=== PATIENT | male | born 1980 | race Caucasian/White ===

== ENCOUNTER 2024-04-28 21:18 | Inpatient (IN) ==
--- NOTE | 2024-04-28 21:51 | Emergency Department Note ---
History of Present Illness General Chief complaint: Respiratory Problems Stated complaint: SHORTNESS OF BREATH, R RIB PAIN Time Seen by Provider: 04/28/24 21:33 History of Present Illness Maximum Pain Intensity: 10 This 44-year-old male who travels a lot for work he quit smoking 3 weeks ago presents ER complaining of sudden onset of shortness of breath. Patient also noticed his right leg was painful and swollen today. No personal History of DVT or PE. Patient denies fever, chills, cough, congestion, trauma to the area. there is a distant history of clotting disorder in his family. Home Medications Medication Instructions Recorded Confirmed Type atenolol 100 mg-chlorthalidone 25 1 tab PO DAILY 04/28/24 04/28/24 History mg tablet ibuprofen 800 mg tablet 800 mg PO Q8H PRN Pain 04/28/24 04/28/24 History Allergies Allergy/AdvReac Type Severity Reaction Status Date / Time No Known Allergies Allergy Unverified 04/28/24 23:58 Past Med/Surg History Problem List (Updated 04/28/24 @ 22:53 by Summer Jarrell PA-C) Hypokalemia (Acute) Pulmonary embolism (Acute) Social History Smoking Status: Former smoker Tobacco Type: Cigarettes Second Hand Exposure: No; Do You Dip or Chew Tobacco: No; Tobacco Cessation Education Requested by Patient: No Hx Alcohol Use: No Hx Substance Use: No Preferred Language: Arabic Communication Ability: Effective Gold Marker Required: No Beliefs That Will Affect Care: None Current Living Situation: Spouse Current Living Situation Comment: lives at home with Other Information That Helps Us Care for You: No Feels Safe at Home: Yes Safety Concerns: Feels Safe At This Time Assistive Devices: None Review of Systems A total of 10 systems reviewed and were otherwise negative Physical Exam Vital Signs Vital Signs - 24 hr 04/28/24 21:25 04/28/24 21:25 04/28/24 21:28 Temperature 37.5 C Temperature Source Oral Pulse Rate 109 H 104 H Respiratory Rate 22 Respiratory Effort / Characteristics Short of Breath SOB on Exertion Respiratory Depth Shallow Respiratory Pattern Rapid/Shallow Blood Pressure 137/92 Blood Pressure Mean 107 Pulse Oximetry 94 Oxygen Delivery Method Nasal Cannula Oxygen Flow Rate 2 Sepsis Recent Fever Within 48 Hours No Sepsis New/Unexplained Change in Mental Status No Sepsis Action Taken by Nursing Physician Notified 04/28/24 21:51 Temperature Temperature Source Pulse Rate Respiratory Rate Respiratory Effort / Characteristics Respiratory Depth Respiratory Pattern Blood Pressure Blood Pressure Mean Pulse Oximetry 95 Oxygen Delivery Method Nasal Cannula Oxygen Flow Rate 2 Sepsis Recent Fever Within 48 Hours Sepsis New/Unexplained Change in Mental Status Sepsis Action Taken by Nursing VITALS: Vitals are noted on the nurse's note and reviewed by myself. Vital signs hypoxic on room air and improved with nasal cannula GENERAL: White male acutely appearing short of breath on oxygen not normally, in no acute distress, nondiaphoretic, well-developed well-nourished. SKIN: Capillary reflex less than 2 seconds. HEENT: Normocephalic. PERRLA. EOMI. Nares patent. Mucous membranes moist. Neck is supple without nuchal rigidity. HEART: Regular rate and rhythm LUNGS: Diminished breath sounds in the right base, clear to auscultation bilaterally without wheezes, rales or rhonchi. No retractions or accessory muscle use. ABDOMEN: Positive bowel sounds x 4. Normal tympanic percussion. Soft, nontender, without masses or organomegaly. Bay sign negative. No guarding or rebound tenderness. no CVA tenderness MUSCULOSKELETAL: No gross musculoskeletal defects. Right calf swollen and tender to palpation. Left calf normal. NEURO: Patient was alert and oriented to person place and time. No focal neurological deficits. Course Administered Medications Albuterol (Albut/Ipratrop 3mg/0.5mg Neb 3 Ml Vial) 3 ml INH QIDR [facility] Stop: 05/29/24 14:59 Last Admin: 04/29/24 19:31 Dose: 3 ml Documented By: Admin: 04/29/24 15:49 Dose: 3 ml Documented By: SHANELL Doxycycline Hyclate (Doxycycline Hyclate 100 Mg Cap) 100 mg PO BID [facility] Stop: 05/06/24 20:59 Last Admin: 04/29/24 20:44 Dose: 100 mg Documented By: SUNITHA Guaifenesin (Guaifenesin 600 Mg Tabcr) 600 mg PO BID [facility] Stop: 05/04/24 09:01 Last Admin: 04/29/24 20:43 Dose: 600 mg Documented By: SUNITHA Heparin Sodium/Dextrose (Heparin Sodium/Dextrose) 25,000 units in 500 mls @ 35 mls/hr IV .[id number] [facility]; Protocol Stop: 05/28/24 23:14 Last Admin: 04/29/24 15:36 Dose: 1,750 units/hr, 35 mls/hr Documented By: GENET Co-signed By: SUSANNE Titration: 04/29/24 15:34 Dose: Infused Documented By: GENET Co-signed By: SUSANNE Admin: 04/28/24 23:51 Dose: 1,750 units/hr, 35 mls/hr Documented By: MILENA Co-signed By: PASTOR Lactated Ringer's (Lr) 1,000 mls @ 160 mls/hr IV .Q6H15M [facility] Stop: 04/30/24 03:38 Last Admin: 04/29/24 23:48 Dose: 160 mls/hr Documented By: Infusion: 04/29/24 23:26 Dose: Infused Documented By: Admin: 04/29/24 17:11 Dose: 160 mls/hr Documented By: GENET Methylprednisolone 40 mg/ (Syringe) 0.64 mls @ 1.5 mls/min IV Q6H [facility] Stop: 05/29/24 18:59 Last Admin: 04/29/24 20:44 Dose: 1.5 mls/min Documented By: SUNITHA Ondansetron HCl (Ondansetron Inj 2 Mg/Ml 2 Ml Vial) 4 mg IV Q6H PRN PRN Reason: Nausea Stop: 05/29/24 15:08 Last Admin: 04/29/24 21:49 Dose: 4 mg Documented By: SUNITHA Discontinued Medications Albuterol (Albut/Ipratrop 3mg/0.5mg Neb 3 Ml Vial) Confirm Administered Dose 3 ml .ROUTE .STK-MED ONE Stop: 04/29/24 06:06 Last Admin: 04/29/24 15:35 Dose: Not Given Documented By: GENET Heparin Sodium (Porcine) (Heparin Sod (Porcine) 1000 Unit/Ml) 8,000 units IV NOW ONE Stop: 04/28/24 23:46 Last Admin: 04/28/24 23:51 Dose: 8,000 units Documented By: MILENA Co-signed By: PASTOR Heparin Sodium/Dextrose (Heparin Iv Adult Wt-Based Standard W/ Initial Bolus Protocol) 1 each IV NOW STA; Protocol Stop: 04/28/24 22:50 Last Admin: 04/28/24 23:58 Dose: 1 each Documented By: MILENA Hydromorphone HCl (Hydromorphone Inj 0.5 Mg/0.5 Ml Syr) Confirm Administered Dose 0.5 mg .ROUTE .STK-MED ONE Stop: 04/29/24 01:59 Last Admin: 04/29/24 15:34 Dose: Not Given Documented By: GENET Hydromorphone HCl (Hydromorphone Inj 0.5 Mg/0.5 Ml Syr) Confirm Administered Dose 0.5 mg .ROUTE .STK-MED ONE Stop: 04/29/24 02:24 Last Admin: 04/29/24 15:35 Dose: Not Given Documented By: GENET Hydromorphone HCl (Hydromorphone Inj 0.5 Mg/0.5 Ml Syr) Confirm Administered Dose 0.5 mg .ROUTE .STK-MED ONE Stop: 04/29/24 05:45 Last Admin: 04/29/24 15:35 Dose: Not Given Documented By: GENET Sodium Chloride (Nss) 1,000 mls @ 999 mls/hr IV .Q1H1M ONE Stop: 04/28/24 23:36 Last Infusion: 04/29/24 16:48 Dose: Infused Documented By: Admin: 04/28/24 22:42 Dose: 999 mls/hr Documented By: KATHERINE Magnesium Sulfate/Dextrose (Magnesium Sulfate / D5w) 1 gm in 100 mls @ 50 mls/hr IV Q2H [facility] Stop: 04/29/24 19:08 Last Admin: 04/29/24 15:39 Dose: Not Given Documented By: Admin: 04/29/24 15:34 Dose: Not Given Documented By: GENET Ioversol (Optiray 320 125ml) 116 ml IV ONCE ONE Stop: 04/28/24 22:04 Last Admin: 04/28/24 22:05 Dose: 116 ml Documented By: AUDRA Morphine Sulfate (Morphine Sulfate 4 Mg/Ml 1 Ml Carp\Vial) 4 mg IV NOW STA Stop: 04/28/24 23:15 Last Admin: 04/28/24 23:24 Dose: 4 mg Documented By: MILENA Ondansetron HCl (Ondansetron Inj 2 Mg/Ml 2 Ml Vial) 4 mg IV NOW STA Stop: 04/28/24 23:15 Last Admin: 04/28/24 23:24 Dose: 4 mg Documented By: MILENA Potassium Chloride (Potassium Chloride Crtab 20 Meq Tabcr) 40 meq PO NOW STA Stop: 04/28/24 22:43 Last Admin: 04/28/24 23:22 Dose: 40 meq Documented By: MILENA Critical Care Time Critical Care Time: Yes Total Critical Care Time: 35 I have personally spent 35 minutes of critical care time in the direct management of this patient. This includes bedside care, interpretation of diagnostic studies, and testing, discussion with consultants, patient, and family members, and other required patient management activities. This 35 minutes is in excess of all separately billable procedures. Medical Decision Making Medical Records Attestation: I reviewed the patient's medical records. Home Medications Current Medication List: was personally reviewed by me Laboratory Data Attestation: I reviewed the patient's lab results. 04/29/24 06:21 04/29/24 06:21 Lab Results 04/28/24 04/28/24 Range/Units 21:27 21:49 WBC 14.88 H (4.8-10.8) K/ul RBC 5.35 (4.70-6.10) M/uL Hgb 14.9 (14.0-18.0) g/dl POC Hgb 15.6 (14.0-18.0) g/dl Hct 43.6 (42.0-52.0) % POC Hct 46 (42-52) % MCV 81.5 (80.0-100.0) fL MCH 27.9 (25.0-34.0) pg MCHC 34.2 (32.0-36.0) g/dL RDW Std Deviation 39.5 (36.4-46.3) fL RDW Coeff of Lance 13.6 (11.5-14.5) % Plt Count 224 (130-400) K/uL MPV 10.6 (9.4-12.4) fL Immature Gran % (Auto) 0.6 % Neut % (Auto) 77.7 % Lymph % (Auto) 12.6 % [place] % (Auto) 7.1 % Eos % (Auto) 1.5 % Baso % (Auto) 0.5 % Neut # (Auto) 11.56 H (1.40-6.50) K/uL Lymph # (Auto) 1.88 (1.20-3.40) K/uL [place] # (Auto) 1.05 H (0.11-0.59) K/uL Eos # (Auto) 0.23 (0.00-0.50) K/uL Baso # (Auto) 0.07 (0.00-0.20) K/uL Immature Gran # (Auto) 0.09 (0.01-0.20) K/uL PT 11.7 (9.0-12.0) Seconds INR 1.1 (0.9-1.1) APTT 36 H (21-31) Seconds PTT Ratio 1.3 POC Sodium 139 (135-144) mmol/L Sodium 136 (136-145) mmol/L POC Potassium 3.1 L (3.3-5.0) mmol/L Potassium 3.1 L (3.5-5.1) mmol/L POC Chloride 99 L (101-112) mmol/L Chloride 100 (98-107) mmol/L Carbon Dioxide 26 (21-32) mmol/L POC Total CO2 23 L (24-31) mmol/L Anion Gap 10 (3-11) POC Anion Gap 22.0 (16-25) mmol/L POC BUN 23 H (7-18) mg/dl BUN 22 (6-23) mg/dl Creatinine 1.03 (0.6-1.4) mg/dl POC Creatinine 1.1 (0.6-1.3) mg/dl Est Cr Clr Drug Dosing 125.7 ml/min Est GFR ( Amer) 101.2 ml/min Est GFR (Non-Af Amer) 87.3 ml/min BUN/Creatinine Ratio 21.4 H (10-20) Glucose 186 H (70-99(Fasting)) mg/dl POC Glucose (other) 187 H (70-99) mg/dl Calcium 8.9 (8.6-10.3) mg/dl POC Ioniz Calcium Navi 1.08 L (1.12-1.32) mmol/l Magnesium 1.8 (1.7-2.4) mg/dl Total Bilirubin 1.2 H (0.2-1.0) mg/dl AST 19 (13-39) U/L ALT 22 (7-52) U/L Alkaline Phosphatase 70 (34-104) U/L Troponin I High Sens 7.1 (0-20) pg/ml Total Protein 8.1 (6.0-8.3) gm/dl Albumin 4.5 (3.4-5.0) gm/dl Globulin 3.6 (2.5-4.0) gm/dl Albumin/Globulin Ratio 1.3 (0.9-2) Lipase 207 H (11-82) U/L Imaging Data Attestation: I personally reviewed and interpreted this imaging study as follows: Radiologist's Impression: Chest CTA 04/28/24 21:39 Exam(s): CTA CHEST IV Amt: 116 ml optiray 320 EXAM: CT Angiography Chest With Intravenous Contrast CLINICAL HISTORY: Chest Pain, eval for PE. TECHNIQUE: Axial computed tomographic angiography images of the chest with intravenous contrast. CTDI is 28.14 mGy and DLP is 761.63 mGy-cm. Automated exposure control was utilized for the study. A dose lowering technique was utilized adhering to the principles of ALARA. MIP reconstructed images were created and reviewed. COMPARISON: No relevant prior studies available. FINDINGS: Limitations: There is extensive respiratory artifact which degrades image quality throughout the lungs. Pulmonary arteries: Evaluation of pulmonary artery tree is limited by respiratory artifact and heterogeneous enhancement. However, there is a partial vertical linear filling defect noted in the proximal subsegmental branches serving the left lower lobe. Additional subsegmental defect noted involving the posterior aspect of the segmental and subsegmental branches serving the proximal right upper lobe. Also, there is also a subtle linear partial filling defect involving the subsegmental branches serving the right lower lobe (series 4; image 85). Evaluation for additional potential distal subsegmental filling defects is limited by nondiagnostic quality of the majority of the distal subsegmental pulmonary artery branches. Aorta: No acute findings. No thoracic aortic aneurysm. Lungs: Evaluation of the lungs is somewhat limited. There is diminished expiratory lung volumes with curvilinear changes at the lung bases. No obvious focal airspace consolidation. Pleural space: Unremarkable. No significant effusion. No pneumothorax. Heart: The cardiac chambers are within normal limits. No definite CT evidence for right heart strain. No pericardial effusion. Bones/joints: No acute fracture. No dislocation. Soft tissues: Unremarkable. Lymph nodes: Unremarkable. No enlarged lymph nodes. IMPRESSION: 1. Evaluation of pulmonary artery tree is limited by respiratory artifact and heterogeneous enhancement. However, there are partial, predominantly linear filling defects involving the proximal segmental and subsegmental branches serving the bilateral lower lobes and proximal right upper lobe, consistent with bilateral pulmonary emboli. The linear changes are not definitive for an acute process. This appearance may also be seen with chronic incomplete recanalization or subacute changes. Evaluation for additional potential distal subsegmental filling defects is limited by nondiagnostic quality of the majority of the distal subsegmental pulmonary artery branches. No CT evidence for right heart strain. 2. Evaluation of the lungs is somewhat limited. There is diminished expiratory lung volumes with curvilinear changes at the lung bases. No obvious focal airspace consolidation. No pleural effusion or pneumothorax. Electronically signed by: Andrew Prado MD 04/28/24 22:45 PM [facility] Narrative Prior records/ancillary studies reviewed. Triage Nursing notes reviewed. Additional history obtained from the nursing. The patient's history was concerning for respiratory difficulties. Differential diagnosis: Etiologies such as infections, reactive airway disease, pneumonia, pneumothorax, COPD, CHF, cardiac ischemia, pulmonary embolism, musculoskeletal, gastrointestinal, as well as others were entertained. Physical examination: As above. ER treatment provided: An order was placed for continuous cardiac monitoring. The monitor shows a rate of 60-1 20 with a sinus rhythm per my interpretation. Limited bedside ultrasound shows active lung sliding in all 4 [place]ley per my independent interpretation Patient was emergently sent down for CTA for rule out PE Heparin with bolus was ordered hypercoagulable workup was ordered On reassessment the patient felt better. Diagnostic interpretation by me: The electrocardiogram was ordered for SOB. ECG: Normal sinus, poor baseline, no ST depression in the inferior leads, rate of 106. Impression sinus tachycardia ST depression that is minimal in inferior leads independently interpreted by myself The labs Independently Interpreted by myself revealed stable H&H. Negative troponin. Low potassium Imaging studies: Chest x-ray with no acute consolidation, pneumothorax or free air per my independent interpretation. CTA as above HEART SCORE: Hx: high/mod/low suspicion: 0 ECG: ST depression/nonspecific changes/normal: 1 Age: Greater than 65/45-64/less than 45: 1 Risk factors: (Hypertension, hyperlipidemia, diabetes, coronary disease, tobacco use, cocaine use): 1 Troponin: Greater than 2 times normal limits/1-2 times normal limits/normal: 0 Total: 3 PESI Score Age: 44 Male gender: 9 History of cancer: 0 Heart failure: 0 Chronic lung disease: 0 Pulse >110/min: 20 Systolic blood pressure <100 mmH Respiratory rate >30/min: 0 Temperature <36 Celcius: 0 Altered mental status: 0 Arterial oxygen saturation <90 percent: 20 Total: 95 Class I Low risk <66 Class II 66 to 85 Class III High risk 86 to 105 Class IV 106 to 125 Class V >125 Consultation: A consultation was placed with the hospitalist. The case was discussed and diagnostics were reviewed. The patient was evaluated in the ER for further treatment. This appears to be consistent with bilateral PEs. Hypercoagulable workup was ordered. Dopplers were ordered. Patient was started on heparin with bolus. Patient is agreeable treatment plan of admission. Patient was admitted to the medical service. By the evaluation outlined above emergent etiologies such as CHF, cardiac ischemia, reactive airway disease, pneumonia, pneumothorax, musculoskeletal, serious bacterial infections, as well as others were deemed relatively unlikely. The pt informed about the findings as listed above. All questions were answered and pleased with the treatment. condition. The chart was completed utilizing [employer] Speech voice recognition software. Grammatical errors, random word insertions, pronoun errors, and incomplete sentences are an occassional consequence of this system due to software limitations, ambient noise, and hardware issues. Any formal questions or concerns about the content, text, or information contained within the body of this dictation should be directly addressed to the physician producer assistant for clarification. Impression & Plan Pulmonary embolism, Hypokalemia Discharge Plan Visit Data Chief Complaint: Respiratory Problems Stated Complaint: SHORTNESS OF BREATH, R RIB PAIN ED Provider: Kayleigh Stanton ED Midlevel Provider: Summer Jarrell Discharge Problem: Pulmonary embolism, Hypokalemia Patient Disposition: Admitted As Inpatient Condition: Good Discharge Instructions Interventions: ED Discharge Assessment Last Done: 04/29/24 01:09 Discharge Problem: Pulmonary embolism Qualifiers: Pulmonary embolism type: multiple subsegmental (without acute cor pulmonale) Q ualified Code(s): I26.94 - Multiple subsegmental pulmonary emboli without acute cor pulmonale
[2024-04-28 22:02] LABS: iSTAT Creatinine 1.1 mg/dl (0.6-1.3); iSTAT Hemoglobin 15.6 g/dl (14.0-18.0); iSTAT Ionized Calcium 1.08 mmol/l (1.12-1.32); iSTAT Potassium 3.1 mmol/L (3.3-5.0)
[2024-04-28] MEDS: OPTIRAY 320 125ml IV ONE (22:05)
[2024-04-28 22:19] LABS: Basophils # (auto) 0.07 K/uL (0.00-0.20); Basophils % (auto) 0.5 %; Eosinophils # (auto) 0.23 K/uL (0.00-0.50); Eosinophils % (auto) 1.5 %; Hematocrit (blood only) 43.6 % (42.0-52.0); Hemoglobin 14.9 g/dl (14.0-18.0); Immature Granulocytes # (auto) 0.09 K/uL (0.01-0.20); Immature Granulocytes % (auto) 0.6 %; Lymphocytes # (auto) 1.88 K/uL (1.20-3.40); Lymphocytes % (auto) 12.6 %; Mean Corpuscular Hemoglobin 27.9 pg (25.0-34.0); Mean Corpuscular Hgb Conc 34.2 g/dL (32.0-36.0); Mean Corpuscular Volume 81.5 fL (80.0-100.0); Mean Platelet Volume 10.6 fL (9.4-12.4); Monocytes # (auto) 1.05 K/uL (0.11-0.59); Monocytes % (auto) 7.1 %; Neutrophils # (auto) 11.56 K/uL (1.40-6.50); Neutrophils % (auto) 77.7 %; Platelet Count 224 K/uL (130-400); RDW Coefficient of Variation 13.6 % (11.5-14.5); RDW Standard Deviation 39.5 fL (36.4-46.3); Red Blood Count 5.35 M/uL (4.70-6.10); White Blood Count 14.88 K/ul (4.8-10.8)
[2024-04-28 22:39] LABS: Albumin Globulin Ratio 1.3 (0.9-2); Albumin Level 4.5 gm/dl (3.4-5.0); BUN Creatinine Ratio 21.4 (10-20); Bilirubin,Total 1.2 mg/dl (0.2-1.0); Calcium 8.9 mg/dl (8.6-10.3); Creatinine Clr Calc Pharmacy 125.7 ml/min; Est GFR (African American) 101.2 ml/min; Est GFR (Non-African American) 87.3 ml/min; Globulin 3.6 gm/dl (2.5-4.0); Potassium 3.1 mmol/L (3.5-5.1); Total Protein 8.1 gm/dl (6.0-8.3)
[2024-04-28] MEDS: SODIUM CHLORIDE 0.9% 1,000 ML IV ONE (22:42)
[2024-04-28 22:45] LABS: Troponin I High Sensitivity 7.1 pg/ml (0-20)
--- NOTE | 2024-04-28 22:45 | CT Scan Report ---
Exam(s): CTA CHEST IV Amt: 116 ml optiray 320 EXAM: CT Angiography Chest With Intravenous Contrast CLINICAL HISTORY: Chest Pain, eval for PE. TECHNIQUE: Axial computed tomographic angiography images of the chest with intravenous contrast. CTDI is 28.14 mGy and DLP is 761.63 mGy-cm. Automated exposure control was utilized for the study. A dose lowering technique was utilized adhering to the principles of ALARA. MIP reconstructed images were created and reviewed. COMPARISON: No relevant prior studies available. FINDINGS: Limitations: There is extensive respiratory artifact which degrades image quality throughout the lungs. Pulmonary arteries: Evaluation of pulmonary artery tree is limited by respiratory artifact and heterogeneous enhancement. However, there is a partial vertical linear filling defect noted in the proximal subsegmental branches serving the left lower lobe. Additional subsegmental defect noted involving the posterior aspect of the segmental and subsegmental branches serving the proximal right upper lobe. Also, there is also a subtle linear partial filling defect involving the subsegmental branches serving the right lower lobe (series 4; image 85). Evaluation for additional potential distal subsegmental filling defects is limited by nondiagnostic quality of the majority of the distal subsegmental pulmonary artery branches. Aorta: No acute findings. No thoracic aortic aneurysm. Lungs: Evaluation of the lungs is somewhat limited. There is diminished expiratory lung volumes with curvilinear changes at the lung bases. No obvious focal airspace consolidation. Pleural space: Unremarkable. No significant effusion. No pneumothorax. Heart: The cardiac chambers are within normal limits. No definite CT evidence for right heart strain. No pericardial effusion. Bones/joints: No acute fracture. No dislocation. Soft tissues: Unremarkable. Lymph nodes: Unremarkable. No enlarged lymph nodes. IMPRESSION: 1. Evaluation of pulmonary artery tree is limited by respiratory artifact and heterogeneous enhancement. However, there are partial, predominantly linear filling defects involving the proximal segmental and subsegmental branches serving the bilateral lower lobes and proximal right upper lobe, consistent with bilateral pulmonary emboli. The linear changes are not definitive for an acute process. This appearance may also be seen with chronic incomplete recanalization or subacute changes. Evaluation for additional potential distal subsegmental filling defects is limited by nondiagnostic quality of the majority of the distal subsegmental pulmonary artery branches. No CT evidence for right heart strain. 2. Evaluation of the lungs is somewhat limited. There is diminished expiratory lung volumes with curvilinear changes at the lung bases. No obvious focal airspace consolidation. No pleural effusion or pneumothorax. Electronically signed by: Andrew Prado MD 04/28/24 22:45 PM
[2024-04-28 22:55] LABS: Magnesium 1.8 mg/dl (1.7-2.4)
[2024-04-28 23:01] LABS: INR 1.1 (0.9-1.1); Partial Thromboplastin Ratio 1.3; Partial Thromboplastin Time 36 Seconds (21-31); Prothrombin Time 11.7 Seconds (9.0-12.0)
--- NOTE | 2024-04-28 23:01 | History & Physical Report ---
Date of Service April 28, 2024 Assessment & Plan (1) Pulmonary embolism: (2) Hypokalemia: Plan Brando is a 44 M w/o significant PMH who presented to the ED for acute onset dyspnea. Bilateral Pulmonary Emboli - Acute onset of dyspnea @ 5 PM, preceded by 2 days of RLE edema/pain - Hemodynamically stable, afebrile, on 2L NC - Leukocytosis w/ left shift on presentation, no acute sign of infection - EKG w/ sinus tachycardia - Coagulation labs/panel drawn pre-anticoagulation - Heparin gtt w/ bolus ongoing - LE Duplex ordered - Echocardiogram ordered - Pain Management: Tylenol PRN, Morphine 2 mg IV Q3 PRN 1-5, Morphine 4 mg IV Q3 PRN 6-10 Hypokalemia - Repletion Code: Full Diet: Regular IVF: mIVF Dispo: Med/tele History of Present Illness Chief Complaint: Dyspnea Primary Care Provider: JOVON Salas Brando is a 44 M w/o significant PMH who presented to the ED for acute onset dyspnea. 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 get to his job here in [place] - He notes that last night he had twisted and felt a large pop in his mid-back, and has been experiencing a growing amount of discomfort there since - Patient has no history of VTE, no known family history of VTE or clotting disorders (states he doesn't know his family history well) - Patient does have hx of HTN but doesnt recall what his medicine is, believes it has HCTZ in it - Patient endorses ongoing back pain but denies chest pain, headaches, lightheadedness, or abdominal pain - He endorses mild nausea Allergies Allergy/AdvReac Type Severity Reaction Status Date / Time No Known Allergies Allergy Unverified 04/28/24 23:58 Home Medications Medication Instructions Recorded Confirmed Type atenolol 100 mg-chlorthalidone 25 1 tab PO DAILY 04/28/24 04/28/24 History mg tablet ibuprofen 800 mg tablet 800 mg PO Q8H PRN Pain 04/28/24 04/28/24 History Past Med/Surg History Problem List (Updated 04/30/24 @ 14:37 by Kerry Lei MD) Acute hypoxic respiratory failure Hypokalemia (Acute) Pulmonary embolism (Acute) Social History Smoking Status: Former smoker Tobacco Type: Cigarettes Second Hand Exposure: No; Do You Dip or Chew Tobacco: No; Tobacco Cessation Education Requested by Patient: No Hx Alcohol Use: No Hx Substance Use: No Preferred Language: Korean Communication Ability: Effective Professor Of Psychiatry Required: No Beliefs That Will Affect Care: None Current Living Situation: Spouse Current Living Situation Comment: lives at home with Other Information That Helps Us Care for You: No Feels Safe at Home: Yes Safety Concerns: Feels Safe At This Time Assistive Devices: None Physical Exam Physical Exam: Gen: Acutely uncomfortable, dyspnic, speaking in short sentences HEENT: Supple, no LAD, no thyromegaly, no JVD Resp:Labored, no wheezing/rhonchi/rales, CTAB CV:Tachycardic, regular, normal S1/S2, no M/R/G Abd: Soft, non-distended, no TTP, normoactive bowels, no masses Extr: 2+ dp bilaterally, 3+ nonpitting RLE edema w/o calf TTP, no LLE edema. Skin: No rashes lesions or erythema Results & Data Results & Data Vital Signs (Past 12 Hours) Vital Signs Temp Pulse Resp BP Pulse Ox O2 Del Method O2 Flow Rate 04/28/24 21:51 95 Nasal Cannula 2 04/28/24 21:28 104 H 04/28/24 21:25 37.5 C 109 H 22 137/92 94 Nasal Cannula 2 Supervising Physician Co-Signing Physician Notes Attending addendum: I have physically seen this patient, have supervised the medical residents activities, and agree with the H&P unless as otherwise noted. Assessment and Plan: Bilateral pulmonary emboli- CT angiography notes proximal segmental and subsegmental PEs in bilateral lower lobes, and proximal right upper lobe. EKG with sinus tachycardia Hypercoagulable workup ordered Continue heparin drip with bolus begun in the ED The patient will be admitted to telemetry for serial cardiac enzymes, serial EKG's, cardiac rhythm monitoring and a 2-D echocardiogram with Dopplers. Lower extremity Dopplers ordered and pending Acetaminophen 650 mg by mouth every 6 hours as needed for mild pain or fever Morphine sulfate 2 mg IV every 3 hours as needed for moderate pain Morphine sulfate 4 mg IV every 3 hours as needed for severe pain Hypokalemia- Potassium 3.1 on admission Magnesium level ordered and pending Replete orally and IV, recheck laboratories in a.m. Hypertension- Continue atenolol Hold chlorthalidone due to likely cause of low potassium Resident Activity Tracking Resident Involvement: Resident Care Provided Care Provided: Adult Hospital Medicine (1) Pulmonary embolism Pulmonary embolism type: multiple subsegmental (without acute cor pulmonale) Qualified Code(s): I26.94 - Multiple subsegmental pulmonary emboli without acute cor pulmonale
[2024-04-28] MEDS ORDERED: HEPARIN SOD (PORCINE) 1000 UNIT/ML IV ONE (23:05)
[2024-04-28] MEDS: POTASSIUM CHLORIDE CRTAB 20 MEQ TABCR PO STA (23:22)
[2024-04-28] MEDS: MoRPHine SULFATE 4 MG/ML 1 ML CARP\\VIAL IV STA (23:24)
[2024-04-28] MEDS: ONDANSETRON INJ 2 MG/ML 2 ML VIAL IV STA (23:24)
[2024-04-28] MEDS: HEPARIN SODIUM/DEXTROSE 25,000 UNITS/500 ML BAG IV SCH (23:51)
[2024-04-28] MEDS: HEPARIN SOD (PORCINE) 1000 UNIT/ML IV ONE (23:51)
[2024-04-28] MEDS: Heparin IV Adult Wt-Based Standard w/ INITIAL Bolus Protocol IV STA (23:58)
--- NOTE | 2024-04-29 12:02 | Ultrasound Report ---
US venous doppler Brando Willett CLINICAL HISTORY: PEs TECHNIQUE: Bilateral lower extremity real-time compression venous ultrasound with Color Doppler imagi ng. Utilizing real-time ultrasonic imaging multiple real time high-resolution ultrasonic images with compression and noncompression maneuvers of the deep venous system in addition to color doppler imagi ng were performed from the common femoral vein through the proximal calf veins. COMPARISON: None available at the time of this dictation. FINDINGS/IMPRESSION: The venous thrombus is seen extending from the common femoral vein to the posterior tibial and perone al veins. No left lower extremity DVT is seen. No superficial venous thrombosis is identified. ACT 112: Negative or not required by law. Electronically signed by: Andry Hurst M.D. 04/29/2024 10:50 AM
--- NOTE | 2024-04-29 12:02 | XRay Report ---
XR chest 1V portable CLINICAL HISTORY: Chest pain, nonspecific COMPARISON STUDY: No previous studies for comparison. FINDINGS: There are low lung volumes. Bibasilar densities favor atelectasis. There is no consolidatio n to suggest pneumonia. Cardiac size is at upper limits of normal. There is no evidence for pulmonary edema. IMPRESSION: No acute cardiopulmonary findings. ACT 112: Negative or not required by law. Electronically signed by: Reji Kothari M.D. 04/29/2024 9:42 AM
[2024-04-29] MEDS ORDERED: MoRPHine SULFATE 4 MG/ML 1 ML CARP\\VIAL IV PRN (15:09)
[2024-04-29] MEDS ORDERED: MoRPHine SULFATE 2 MG/ML CARP IV PRN (15:09)
[2024-04-29] MEDS: HYDROmorphone INJ 0.5 MG/0.5 ML SYR ONE ×3 (15:34→15:35)
[2024-04-29] MEDS: MAGNESIUM SULFATE / D5W 1 GM/100 ML BAG IV SCH (15:34)
[2024-04-29] MEDS: ALBUT/IPRATROP 3MG/0.5MG NEB 3 ML VIAL ONE (15:35)
[2024-04-29] MEDS: ALBUT/IPRATROP 3MG/0.5MG NEB 3 ML VIAL INH SCH (15:49)
--- NOTE | 2024-04-29 16:09 | Electrocardiogram Report ---
Test Reason : Blood Pressure : / mmHG Vent. Rate : 106 BPM Atrial Rate : 106 BPM P-R Int : 150 ms QRS Dur : 098 ms QT Int : 348 ms P-R-T Axes : 026 069 023 degrees QTc Int : 462 ms Sinus tachycardia Otherwise normal ECG No previous ECGs available Confirmed by Sundeep Weeks ([id number]) on 04/29/2024 4:09:19 PM Referred By: REFERRED SELF Confirmed By:Sundeep Weeks
[2024-04-29] MEDS: LACTATED RINGER'S 1,000 ML IV SCH (17:11)
[2024-04-29 17:17] LABS: ANTI-Xa, UFH(UnfractionatedHep 0.44 IU/ml (0.3-0.7)
[2024-04-29 17:57] LABS: Hematocrit (blood only) 41.7 % (42.0-52.0); Hemoglobin 14.2 g/dl (14.0-18.0); Mean Corpuscular Hemoglobin 28.2 pg (25.0-34.0); Mean Corpuscular Hgb Conc 34.1 g/dL (32.0-36.0); Mean Corpuscular Volume 82.9 fL (80.0-100.0); Mean Platelet Volume 10.5 fL (9.4-12.4); Platelet Count 207 K/uL (130-400); RDW Coefficient of Variation 13.8 % (11.5-14.5); RDW Standard Deviation 41.1 fL (36.4-46.3); Red Blood Count 5.03 M/uL (4.70-6.10); White Blood Count 17.68 K/ul (4.8-10.8)
[2024-04-29 19:11] LABS: Albumin Globulin Ratio 1.2 (0.9-2); Albumin Level 4.2 gm/dl (3.4-5.0); BUN Creatinine Ratio 24.1 (10-20); Bilirubin,Total 1.3 mg/dl (0.2-1.0); Calcium 8.3 mg/dl (8.6-10.3); Est GFR (African American) 123.2 ml/min; Est GFR (Non-African American) 106.3 ml/min; Globulin 3.6 gm/dl (2.5-4.0); Magnesium 1.8 mg/dl (1.7-2.4); Potassium 3.4 mmol/L (3.5-5.1); Total Protein 7.8 gm/dl (6.0-8.3)
[2024-04-29] MEDS: guaiFENesin 600 MG TABCR PO SCH (20:43)
[2024-04-29] MEDS: methylPREDNISolone 40 MG in SYRINGE 0 ML IV SCH (20:44)
[2024-04-29] MEDS: DOXYCYCLINE HYCLATE 100 MG CAP PO SCH (20:44)
[2024-04-29] MEDS: ONDANSETRON INJ 2 MG/ML 2 ML VIAL IV PRN (21:49)
[2024-04-30 01:33] LABS: HCO3 VBG 30 mmol/L; Oxygen Saturation VBG 83.6 %; PCO2 VBG 44 mmHg (38-50); PO2 VBG 49 mmHg; pH VBG 7.44 (7.36-7.41)
[2024-04-30] MEDS: FUROSEMIDE 40 MG/4 ML VIAL IV ONE (01:58)
[2024-04-30 02:03] LABS: ANTI-Xa, UFH(UnfractionatedHep 0.29 IU/ml (0.3-0.7)
[2024-04-30 07:35] LABS: Hematocrit (blood only) 39.8 % (42.0-52.0); Hemoglobin 13.8 g/dl (14.0-18.0); Mean Corpuscular Hgb Conc 34.7 g/dL (32.0-36.0); Mean Corpuscular Volume 80.9 fL (80.0-100.0); Mean Platelet Volume 10.2 fL (9.4-12.4); Platelet Count 230 K/uL (130-400); RDW Coefficient of Variation 13.1 % (11.5-14.5); RDW Standard Deviation 38.2 fL (36.4-46.3); Red Blood Count 4.92 M/uL (4.70-6.10); White Blood Count 20.47 K/ul (4.8-10.8)
[2024-04-30 07:47] LABS: BUN Creatinine Ratio 24.6 (10-20); Calcium 8.7 mg/dl (8.6-10.3); Creatinine Clr Calc Pharmacy 187.7 ml/min; Est GFR (African American) 132.9 ml/min; Est GFR (Non-African American) 114.7 ml/min; Magnesium 1.9 mg/dl (1.7-2.4); Potassium 3.3 mmol/L (3.5-5.1)
[2024-04-30 08:41] LABS: ANTI-Xa, UFH(UnfractionatedHep 0.37 IU/ml (0.3-0.7)
--- NOTE | 2024-04-30 09:03 | XRay Report ---
XR chest 1V portable CLINICAL HISTORY: worsening oxygen requirement TECHNIQUE: Single frontal radiograph of the chest was obtained. Comparison: Comparison is made to chest radiograph 04/28/2024 FINDINGS: No lines and tubes are seen. Cardiomegaly is noted. Lungs are underinflated with faint bibasilar airs pace opacities.. No evidence of pleural effusion or pneumothorax. IMPRESSION: Underinflated lungs with likely atelectasis in the bilateral lower lungs. ACT 112: Negative or not required by law. Electronically signed by: Andry Hurst M.D. 04/30/2024 9:02 AM
[2024-04-30] MEDS: POTASSIUM CHLORIDE CRTAB 20 MEQ TABCR PO STA (09:44)
[2024-04-30] MEDS: methylPREDNISolone 40 MG in SYRINGE 0 ML IV SCH (12:42)
--- NOTE | 2024-04-30 14:33 | Hospitalist Progress Note ---
Date of Service April 30, 2024 Assessment & Plan (1) Acute hypoxic respiratory failure: Plan Acute hypoxic respiratory failure Acute b/l PE Continue heparin gtt - change to [facility] outpatient hematology follow up AE COPD Improving - taper steroids Continue bronchodilators Smoking cessation Hypertension Continue home regimen, continue OOB as tolerated DVT Px Dispo - Wean O2 as tolerated, discharge when O2 requirement is below 6LPM Admission and Anticipated Discharge Date Admission Date: April 28, 2024 Subjective Reports much improvement of shortness of breath and chest pain but on high flow oxygen Physical Exam Physical Exam: Resting comfortably, non toxic Lungs much improved air entry compared to yesterday Heart RRR PA Soft, NT, ND, BS+ MSK No joint swelling or effsuion AAO#3, No focal deficits Skin no rash Results & Data Results & Data Vital Signs (Past 12 Hours) Vital Signs Temp Pulse Resp BP Pulse Ox O2 Del Method O2 Flow Rate 04/30/24 14:23 76 18 91 High Flow Nasal Cannula 04/30/24 10:47 36.9 C 93 H 26 H 133/69 89 L High Flow Nasal Cannula 04/30/24 10:36 High Flow Nasal Cannula 30 04/30/24 10:05 84 22 93 High Flow Nasal Cannula 30 04/30/24 08:01 36.6 C 85 25 H 147/83 H 88 L High Flow Nasal Cannula 04/30/24 07:31 78 18 90 High Flow Nasal Cannula 04/30/24 03:02 36.9 C 84 18 145/85 H 95 CPAP FiO2 04/30/24 14:23 100 04/30/24 10:47 04/30/24 10:36 100 04/30/24 10:05 100 04/30/24 08:01 04/30/24 07:31 100 Reviewed 04/30/24 03:02 Reviewed PG Care Time/CCT Total # of Minutes Spent Total Time Spent with Patient: Total time spent is greater than 50% in coordination of care (as documented) at patient's floor/unit and/or counseling patient: Coding Level of Care Code 19226 SUB INP/OBS CARE 2/35MIN Diagnoses Acute hypoxic respiratory failure J96.01
--- NOTE | 2024-04-30 16:52 | XCELERA ---
[id number]
[2024-04-30] MEDS: APIXABAN 5 MG TABLET PO SCH (18:31)
--- NOTE | 2024-04-30 19:22 | Billing Data ---
Date of Service April 30, 2024 Coding Level of Care Code 96669 INT INP/OBS CARE
[2024-05-01 05:58] LABS: Hematocrit (blood only) 37.7 % (42.0-52.0); Mean Corpuscular Hemoglobin 28.2 pg (25.0-34.0); Mean Corpuscular Hgb Conc 34.5 g/dL (32.0-36.0); Mean Corpuscular Volume 81.8 fL (80.0-100.0); Mean Platelet Volume 10.2 fL (9.4-12.4); Platelet Count 245 K/uL (130-400); RDW Coefficient of Variation 13.1 % (11.5-14.5); RDW Standard Deviation 38.7 fL (36.4-46.3); Red Blood Count 4.61 M/uL (4.70-6.10); White Blood Count 23.78 K/ul (4.8-10.8)
[2024-05-01 06:18] LABS: BUN Creatinine Ratio 31.4 (10-20); Calcium 8.8 mg/dl (8.6-10.3); Est GFR (African American) 132.1 ml/min; Magnesium 2.1 mg/dl (1.7-2.4); Potassium 3.7 mmol/L (3.5-5.1)
--- NOTE | 2024-05-01 08:37 | XRay Report ---
XR chest 1V portable HISTORY: dyspnea COMPARISON: Chest 04/30/2024. FINDINGS: No pneumothorax. No pleural effusions. There is mild elevation of the right hemidiaphragm a nd low lung volumes. This is similar to the prior study. The cardiac silhouette remains mildly enlarg ed. Bibasilar linear densities persist. No acute fractures. There is mild central pulmonary vascular congestion without overt edema. IMPRESSION: No significant change in the low lung volumes and bibasilar linear densities. This favors subsegmenta l atelectasis. ACT 112: Negative or not required by law. Electronically signed by: Alfonso Ring M.D. 05/01/2024 8:35 AM
--- NOTE | 2024-05-01 10:38 | Hospitalist Progress Note ---
Date of Service April 30, 2024 Assessment & Plan (1) Acute hypoxic respiratory failure: Plan Acute hypoxic respiratory failure Requiring high flow at 33LPM Pulmonary consult Acute b/l PE - changed heparin gtt to [facility] Outpatient hematology follow up Bronchospasm / smoker - ? COPD Exacerbation Much improved with steroids - change IV solumedrol for PO prednisone 5 day course Continue duonebs, complete course of Doxycycline smoking cessation House diet OOB as tolerated DVT Px - on heparin gtt Full code Dispo - discharge when O2 requirement is below 6LPM Admission and Anticipated Discharge Date Admission Date: April 28, 2024 Subjective no chest pain or shortness of breath, looks and feels good but still high supplemental O2 requirement at 33LPM, no cough, fever or chills Physical Exam Physical Exam: Resting comfortably, non toxic Lungs - clear to auscultation bilaterally Heart - RRR PA Soft, NT, ND, BS+, No palpable masses Skin no rash MSK - No joint swelling or effusion AAO##, Non focal Pleasant and cooperative Vitals reviewed Results & Data Results & Data Vital Signs (Past 12 Hours) Vital Signs Temp Pulse Resp BP Pulse Ox O2 Del Method O2 Flow Rate 05/01/24 08:00 36.8 C 78 20 119/71 96 Free Flow/Blow-by 33 05/01/24 07:23 66 20 98 High Flow Nasal Cannula 25 05/01/24 03:44 73 18 90 High Flow Nasal Cannula 25 05/01/24 03:23 36.8 C 68 18 125/68 91 Free Flow/Blow-by 33 04/30/24 22:58 80 18 91 High Flow Nasal Cannula 25 04/30/24 22:39 37.0 C 72 18 112/60 94 High Flow Nasal Cannula 25 FiO2 05/01/24 08:00 05/01/24 07:23 100 05/01/24 03:44 100 05/01/24 03:23 04/30/24 22:58 100 04/30/24 22:39 PG Care Time/CCT Total # of Minutes Spent Total Time Spent with Patient: Total time spent is greater than 50% in coordination of care (as documented) at patient's floor/unit and/or counseling patient: Coding Level of Care Code 22561 SUB INP/OBS CARE 2/35MIN Diagnoses Acute hypoxic respiratory failure J96.01
--- NOTE | 2024-05-01 10:44 | Hospitalist Progress Note ---
Date of Service April 30, 2024 Assessment & Plan (1) Acute hypoxic respiratory failure: Plan Acute hypoxic respiratory failure Acute b/l PE - change heparin gtt to [facility] Outpatient hematology follow up Bronchospasm / smoker - ? COPD Exacerbation Much improved with steroids - taper solumedrol Continue duonebs, complete course of Doxycycline smoking cessation outpatient pulm follow up House diet OOB as tolerated DVT Px - on heparin gtt Full code Dispo - discharge when O2 requirement is below 6LPM Admission and Anticipated Discharge Date Admission Date: April 28, 2024 Subjective Reports improvement of chest pain and shortness of breath but overnight O2 requirement increased to 30Lhigh flow Physical Exam Physical Exam: Resting comfortably, non toxic Lungs - much improved air entry bilateralyl Heart - RRR PA Soft, NT, ND, BS+, No palpable masses Skin no rash MSK - No joint swelling or effusion AAO##, Non focal Pleasant and cooperative Vitals reviewed Results & Data Results & Data Vital Signs (Past 12 Hours) Vital Signs Temp Pulse Resp BP Pulse Ox O2 Del Method O2 Flow Rate 05/01/24 08:00 36.8 C 78 20 119/71 96 Free Flow/Blow-by 33 05/01/24 07:23 66 20 98 High Flow Nasal Cannula 25 05/01/24 03:44 73 18 90 High Flow Nasal Cannula 25 05/01/24 03:23 36.8 C 68 18 125/68 91 Free Flow/Blow-by 33 04/30/24 22:58 80 18 91 High Flow Nasal Cannula 25 FiO2 05/01/24 08:00 05/01/24 07:23 100 05/01/24 03:44 100 05/01/24 03:23 04/30/24 22:58 100 Diagnostic Findings ECHO 2D with no RV strain PG Care Time/CCT Total # of Minutes Spent Total Time Spent with Patient: Total time spent is greater than 50% in coordination of care (as documented) at patient's floor/unit and/or counseling patient: Coding Level of Care Code 41990 SUB INP/OBS CARE 2/35MIN Diagnoses Acute hypoxic respiratory failure J96.01
--- NOTE | 2024-05-01 11:15 | Pulmonary Consultation ---
Date of Consultation May 01, 2024 Assessment & Plan (1) Acute hypoxic respiratory failure: (2) Pulmonary embolism: Pulmonary embolism type: multiple subsegmental (without acute cor pulmonale) Qualified Code(s): I26.94 - Multiple subsegmental pulmonary emboli without acute cor pulmonale (3) Acute DVT (deep venous thrombosis): (4) Morbid obesity: Plan CTA chest 04/28/2024 personally reviewed: Motion degraded study Mild elevation of right hemidiaphragm Minimal dependent atelectasis bilateral lower lobes Pulmonary emboli appreciated in the segmental as well as subsegmental right and left pulmonary arteries No significant mediastinal lymphadenopathy 2D echo 04/30/2024: EF 60-65%, RV not well-visualized but grossly normal in size and function --Acute hypoxic respiratory failure Likely secondary to bilateral pulmonary emboli VQ mismatch from dependent atelectasis bilateral lower lobes secondary to morbid obesity also playing a part Doppler right lower extremity positive for DVT Incentive spirometry -- Pulmonary emboli with acute DVT right lower extremity Diagnosed 04/28/2024 Patient did have travel history of 6 hours with 1 stop. No personal or family history of coagulation disorders. I would recommend lifelong anticoagulation for the patient Would recommend 3 months of full dose anticoagulation followed by half dose anticoagulation as patient's BMI puts him at risk for clots again in future -- Probable MELI Would recommend outpatient polysomnography. CPAP nightly in the hospital Plan: Chest x-ray from today shows poor inspiratory effort with elevated right hemidiaphragm. I would recommend lifelong anticoagulation for the patient Would recommend 3 months of full dose anticoagulation followed by half dose anticoagulation as patient's BMI puts him at risk for clots again in future Aggressive incentive spirometry Keep O2 saturation>90% Please note the above document was generated using voice recognition software. It may contain grammatical, syntax or spelling errors.Any formal questions or concerns about the content, text or information contained within the body of this dictation should be directly addressed to the provider for clarification. History of Present Illness Attending Physician: Kerry Lei MD History of Present Illness 43-year-old male present to the hospital with complaints of shortness of breath Past medical history: Hypertension Pulmonary consulted for hypoxia Patient's was in the room at the time of examination He was saturating 92-93% on 13 L nasal cannula. Respiratory was in the mid to high teens. Denied any chest pain today. He stated that he is feeling better compared to yesterday when it comes to his breathing. He usually stays 6 hours from [place]. He drives 6 hours on a regular basis with 1 stop in the middle. No known history of clotting disorders personally or in the family. No fever or chills, no trauma to the leg No headache or blurry vision Social history:> [id number] smoking history, currently smoking a pack a day. Worked as a gas welder, wore mask all the time Allergies Allergy/AdvReac Type Severity Reaction Status Date / Time No Known Allergies Allergy Unverified 04/28/24 23:58 Home Medications Medication Instructions Recorded Confirmed Type atenolol 100 mg-chlorthalidone 25 1 tab PO DAILY 04/28/24 04/28/24 History mg tablet ibuprofen 800 mg tablet 800 mg PO Q8H PRN Pain 04/28/24 04/28/24 History Patient History Social History Smoking Status: Former smoker Tobacco Type: Cigarettes Second Hand Exposure: No; Do You Dip or Chew Tobacco: No; Tobacco Cessation Education Requested by Patient: No Hx Alcohol Use: No Hx Substance Use: No Preferred Language: Japanese Communication Ability: Effective Software Consultant Required: No Beliefs That Will Affect Care: None Current Living Situation: Spouse Current Living Situation Comment: lives at home with Other Information That Helps Us Care for You: No Feels Safe at Home: Yes Safety Concerns: Feels Safe At This Time Assistive Devices: None Review of Systems 2 Review of Systems: All systems reviewed & are unremarkable except as noted in HPI & below Physical Exam 2 Physical Exam: Constitutional: No acute distress HEENT: EOMI, PERRLA Respiratory system: Decreased air entry bowel 20, no wheeze, no rhonchi, positive crackles bilateral lower lobes CVS: S1-S2 positive, no murmurs or gallops, distant heart sounds Abdomen: Soft, nontender, nondistended, positive bowel sounds x4, obese Extremities: +2 pulses bilaterally radialis/ dorsalis pedis, no cyanosis, +2 pitting edema right lower extremity, +1 pitting edema left lower extremity Neuro: Awake alert oriented x3 Psych: Normal mood and affect G/U:, No [place] Skin: no rashes, warm and dry Lymphatic: no cervical or axillary lymphadenopathy Results & Data Results & Data Vital Signs (Past 12 Hours) Vital Signs Temp Pulse Resp BP Pulse Ox O2 Del Method O2 Flow Rate 05/01/24 10:48 74 18 92 Nasal Cannula 12 05/01/24 08:00 36.8 C 78 20 119/71 96 Free Flow/Blow-by 33 05/01/24 07:23 66 20 98 High Flow Nasal Cannula 25 05/01/24 03:44 73 18 90 High Flow Nasal Cannula 25 05/01/24 03:23 36.8 C 68 18 125/68 91 Free Flow/Blow-by 33 FiO2 05/01/24 10:48 05/01/24 08:00 05/01/24 07:23 100 05/01/24 03:44 100 05/01/24 03:23 Laboratory Results 05/01/24 05:38 05/01/24 05:38 PG Care Time/CCT Total # of Minutes Spent Total Time Spent with Patient: Total time spent is greater than 50% in coordination of care (as documented) at patient's floor/unit and/or counseling patient: Coding Level of Care Code 55920 INT INP/OBS CARE 3/75MIN Diagnoses Acute hypoxic respiratory failure J96.01 Pulmonary embolism I26.94 Pulmonary embolism type: multiple subsegmental (without acute cor pulmonale) Acute DVT (deep venous thrombosis) I82.409 Morbid obesity E66.01
--- NOTE | 2024-05-02 07:11 | Pulmonology Progress Note ---
Date of Service May 02, 2024 Assessment & Plan (1) Acute hypoxic respiratory failure: (2) Pulmonary embolism: Pulmonary embolism type: multiple subsegmental (without acute cor pulmonale) Qualified Code(s): I26.94 - Multiple subsegmental pulmonary emboli without acute cor pulmonale (3) Acute DVT (deep venous thrombosis): (4) Morbid obesity: Plan CTA chest 04/28/2024 personally reviewed: Motion degraded study Mild elevation of right hemidiaphragm Minimal dependent atelectasis bilateral lower lobes Pulmonary emboli appreciated in the segmental as well as subsegmental right and left pulmonary arteries No significant mediastinal lymphadenopathy 2D echo 04/30/2024: EF 60-65%, RV not well-visualized but grossly normal in size and function --Acute hypoxic respiratory failure Likely secondary to bilateral pulmonary emboli VQ mismatch from dependent atelectasis bilateral lower lobes secondary to morbid obesity also playing a part Doppler right lower extremity positive for DVT Incentive spirometry -- Pulmonary emboli with acute DVT right lower extremity Diagnosed 04/28/2024 Patient did have travel history of 6 hours with 1 stop. No personal or family history of coagulation disorders. I would recommend lifelong anticoagulation for the patient Would recommend 3 months of full dose anticoagulation followed by half dose anticoagulation as patient's BMI puts him at risk for clots again in future -- Probable MELI Would recommend outpatient polysomnography. CPAP nightly in the hospital Plan: I would recommend lifelong anticoagulation for the patient Would recommend 3 months of full dose anticoagulation followed by half dose anticoagulation as patient's BMI puts him at risk for clots again in future Also recommend outpatient polysomnography Aggressive incentive spirometry Keep O2 saturation>90% Case was discussed with RN at bedside Please note the above document was generated using voice recognition software. It may contain grammatical, syntax or spelling errors.Any formal questions or concerns about the content, text or information contained within the body of this dictation should be directly addressed to the provider for clarification. Admission and Anticipated Discharge Date Admission Date: April 28, 2024 Subjective Patient seen and examined at bedside. No acute distress, no adverse events overnight Denies any chest pain Was standing in the room at the time of examination, saturating 94% on 8 L nasal cannula I was able to go down to 6 L and he was still maintaining saturation around 90- 91% Has been using incentive spirometry. Fair appetite, no hemoptysis He did try CPAP at night and was able to tolerate only for an hour or so. He is willing to try it again. He is complaining of nasal congestion, will give him some nasal spray Review of Systems 2 Review of Systems: All systems reviewed & are unremarkable except as noted in Subjective Physical Exam 2 Physical Exam: Constitutional: No acute distress HEENT: EOMI, PERRLA Respiratory system: Decreased air entry bilaterally, no wheeze, no rhonchi, positive crackles bilateral lower lobes CVS: S1-S2 positive, no murmurs or gallops, distant heart sounds Abdomen: Soft, nontender, nondistended, positive bowel sounds x4, obese Extremities: +2 pulses bilaterally radialis/ dorsalis pedis, no cyanosis, +2 pitting edema right lower extremity, +1 pitting edema left lower extremity Neuro: Awake alert oriented x3 Psych: Normal mood and affect G/U:, No [place] Skin: no rashes, warm and dry Lymphatic: no cervical or axillary lymphadenopathy Results & Data Results & Data Vital Signs (Past 12 Hours) Vital Signs Temp Pulse Pulse Resp BP BP Pulse Ox 05/02/24 03:16 36.5 C 66 16 92/55 L 92 05/02/24 00:25 70 24 93 05/01/24 23:27 36.7 C 66 18 147/74 H 95 05/01/24 21:52 80 05/01/24 19:53 36.7 C 80 18 147/72 H 94 05/01/24 19:45 05/01/24 19:31 82 18 93 O2 Del Method O2 Flow Rate 05/02/24 03:16 High Flow Nasal Cannula 9.0 05/02/24 00:25 8 05/01/24 23:27 Nasal Cannula 9 05/01/24 21:52 05/01/24 19:53 High Flow Nasal Cannula 9.0 05/01/24 19:45 Nasal Cannula 9 05/01/24 19:31 Nasal Cannula 9 Laboratory Results 05/02/24 06:32 05/02/24 06:32 PG Care Time/CCT Total # of Minutes Spent Total Time Spent with Patient: Total time spent is greater than 50% in coordination of care (as documented) at patient's floor/unit and/or counseling patient: Coding Level of Care Code 48468 SUB INP/OBS CARE 2/35MIN Diagnoses Acute hypoxic respiratory failure J96.01 Pulmonary embolism I26.94 Pulmonary embolism type: multiple subsegmental (without acute cor pulmonale) Acute DVT (deep venous thrombosis) I82.409 Morbid obesity E66.01
[2024-05-02 07:39] LABS: Hematocrit (blood only) 39.6 % (42.0-52.0); Hemoglobin 13.1 g/dl (14.0-18.0); Mean Corpuscular Hemoglobin 27.8 pg (25.0-34.0); Mean Corpuscular Hgb Conc 33.1 g/dL (32.0-36.0); Mean Corpuscular Volume 83.9 fL (80.0-100.0); Platelet Count 237 K/uL (130-400); RDW Coefficient of Variation 13.4 % (11.5-14.5); RDW Standard Deviation 41.2 fL (36.4-46.3); Red Blood Count 4.72 M/uL (4.70-6.10)
[2024-05-02 07:44] LABS: BUN Creatinine Ratio 32.4 (10-20); Creatinine Clr Calc Pharmacy 181.5 ml/min; Est GFR (African American) 131.3 ml/min; Est GFR (Non-African American) 113.3 ml/min; Potassium 3.4 mmol/L (3.5-5.1)
[2024-05-02] MEDS: ACETAMINOPHEN 500 MG TAB PO PRN (07:53)
[2024-05-02] MEDS: predniSONE 20 MG TAB PO SCH (07:53)
[2024-05-02] MEDS: CHLORTHALIDONE 25 MG TAB PO SCH (10:44)
[2024-05-02] MEDS: ATENOLOL 50 MG TABLET PO SCH (10:44)
[2024-05-02] MEDS: FLUTICASONE PROPIONATE NA SPR 16 GM BTL SCH (12:45)
--- NOTE | 2024-05-02 13:47 | Hospitalist Progress Note ---
Date of Service May 02, 2024 Assessment & Plan (1) Acute hypoxic respiratory failure: Plan Acute hypoxic respiratory failure Hypoxia improving currently on 8LPM saturating 94% - wean as tolerated Pulmonary consult Acute b/l PE - changed heparin gtt to [facility] Outpatient hematology follow up Bronchospasm / smoker - ? COPD Exacerbation Much improved with steroids - complete PO prednisone 5 day course Continue duonebs, complete course of Doxycycline smoking cessation House diet OOB as tolerated DVT Px - on heparin gtt Full code Dispo - discharge when O2 requirement is below 6LPM Admission and Anticipated Discharge Date Admission Date: April 28, 2024 Subjective restting comfortably, no chest pain or SOB, on 8L O2 Physical Exam Physical Exam: Resting comfortably, non toxic Lungs - clear to auscultation bilaterally Heart - RRR PA Soft, NT, ND, BS+, No palpable masses Skin no rash MSK - No joint swelling or effusion AAO##, Non focal Pleasant and cooperative Vitals reviewed Results & Data Results & Data Vital Signs (Past 12 Hours) Vital Signs Temp Pulse Resp BP BP Pulse Ox O2 Del Method 05/02/24 12:02 36.6 C 75 17 128/82 95 Nasal Cannula 05/02/24 10:40 74 18 92 Nasal Cannula 05/02/24 09:14 Nasal Cannula 05/02/24 07:54 36.5 C 84 20 160/79 H 92 Nasal Cannula 05/02/24 07:25 68 18 94 Nasal Cannula 05/02/24 03:16 36.5 C 66 16 92/55 L 92 High Flow Nasal Cannula O2 Flow Rate 05/02/24 12:02 6 05/02/24 10:40 8 05/02/24 09:14 8 05/02/24 07:54 8 05/02/24 07:25 8 05/02/24 03:16 9.0 PG Care Time/CCT Total # of Minutes Spent Total Time Spent with Patient: Total time spent is greater than 50% in coordination of care (as documented) at patient's floor/unit and/or counseling patient: Coding Level of Care Code 75595 SUB INP/OBS CARE 2/35MIN Diagnoses Acute hypoxic respiratory failure J96.01
--- NOTE | 2024-05-02 16:10 | Hospitalist Progress Note ---
Date of Service May 02, 2024 Assessment & Plan (1) Acute hypoxic respiratory failure: Plan Acute hypoxic respiratory failure Hypoxia improving currently on 8LPM saturating 94% - wean as tolerated Pulmonary consult Acute b/l PE secondary to RLE DVT - changed heparin gtt to [facility] Outpatient hematology follow up Bronchospasm / smoker - ? COPD Exacerbation Much improved with steroids - complete PO prednisone 5 day course Continue duonebs, complete course of Doxycycline smoking cessation House diet OOB as tolerated DVT Px - on heparin gtt Full code Dispo - discharge when O2 requirement is below 6LPM Admission and Anticipated Discharge Date Admission Date: April 28, 2024 Subjective restting comfortably, no chest pain or SOB, on 8L O2 Physical Exam Physical Exam: Resting comfortably, non toxic Lungs - clear to auscultation bilaterally Heart - RRR PA Soft, NT, ND, BS+, No palpable masses Skin no rash MSK - No joint swelling or effusion AAO##, Non focal Pleasant and cooperative Vitals reviewed Results & Data Results & Data Vital Signs (Past 12 Hours) Vital Signs Temp Pulse Resp BP BP Pulse Ox O2 Del Method 05/02/24 15:38 70 18 93 Nasal Cannula 05/02/24 14:35 36.9 C 68 17 121/74 94 Nasal Cannula 05/02/24 12:02 36.6 C 75 17 128/82 95 Nasal Cannula 05/02/24 10:40 74 18 92 Nasal Cannula 05/02/24 09:14 Nasal Cannula 05/02/24 07:54 36.5 C 84 20 160/79 H 92 Nasal Cannula 05/02/24 07:25 68 18 94 Nasal Cannula O2 Flow Rate 05/02/24 15:38 6 05/02/24 14:35 6 05/02/24 12:02 6 05/02/24 10:40 8 05/02/24 09:14 8 05/02/24 07:54 8 05/02/24 07:25 8 PG Care Time/CCT Total # of Minutes Spent Total Time Spent with Patient: Total time spent is greater than 50% in coordination of care (as documented) at patient's floor/unit and/or counseling patient: Coding Level of Care Code 98353 SUB INP/OBS CARE 2/35MIN Diagnoses Acute hypoxic respiratory failure J96.01
[2024-05-03 06:00] LABS: Hematocrit (blood only) 40.1 % (42.0-52.0); Hemoglobin 13.4 g/dl (14.0-18.0); Mean Corpuscular Hgb Conc 33.4 g/dL (32.0-36.0); Mean Corpuscular Volume 83.9 fL (80.0-100.0); Mean Platelet Volume 9.6 fL (9.4-12.4); Platelet Count 235 K/uL (130-400); RDW Coefficient of Variation 13.6 % (11.5-14.5); RDW Standard Deviation 41.5 fL (36.4-46.3); Red Blood Count 4.78 M/uL (4.70-6.10); White Blood Count 15.18 K/ul (4.8-10.8)
[2024-05-03 06:06] LABS: BUN Creatinine Ratio 27.3 (10-20); Creatinine Clr Calc Pharmacy 167.4 ml/min; Est GFR (Non-African American) 109.6 ml/min; Potassium 3.4 mmol/L (3.5-5.1)
--- NOTE | 2024-05-03 07:40 | Pulmonology Progress Note ---
Date of Service May 03, 2024 Assessment & Plan (1) Acute hypoxic respiratory failure: (2) Pulmonary embolism: Pulmonary embolism type: multiple subsegmental (without acute cor pulmonale) Qualified Code(s): I26.94 - Multiple subsegmental pulmonary emboli without acute cor pulmonale (3) Acute DVT (deep venous thrombosis): (4) Morbid obesity: Plan CTA chest 04/28/2024 personally reviewed: Motion degraded study Mild elevation of right hemidiaphragm Minimal dependent atelectasis bilateral lower lobes Pulmonary emboli appreciated in the segmental as well as subsegmental right and left pulmonary arteries No significant mediastinal lymphadenopathy 2D echo 04/30/2024: EF 60-65%, RV not well-visualized but grossly normal in size and function --Acute hypoxic respiratory failure Likely secondary to bilateral pulmonary emboli VQ mismatch from dependent atelectasis bilateral lower lobes secondary to morbid obesity also playing a part Doppler right lower extremity positive for DVT Incentive spirometry -- Pulmonary emboli with acute DVT right lower extremity Diagnosed 04/28/2024 Patient did have travel history of 6 hours with 1 stop. No personal or family history of coagulation disorders. I would recommend lifelong anticoagulation for the patient Would recommend 3 months of full dose anticoagulation followed by half dose anticoagulation as patient's BMI puts him at risk for clots again in future -- Probable MELI Would recommend outpatient polysomnography. CPAP nightly in the hospital Plan: Has been significant improvement in patient's oxygen requirement. He was saturating well even on 1 L I do think we might be able to get him off oxygen at rest. He might still need it on exertion. Recommend to check for oxygen on exertion prior to discharge Recommend lifelong anticoagulation for the patient Would recommend 3 months of full dose anticoagulation followed by half dose anticoagulation as patient's BMI puts him at risk for clots again in future Also recommend outpatient polysomnography Continue with aggressive incentive spirometry Keep O2 saturation>90% Case was discussed with RN at bedside No further recommendation from pulmonary perspective, will sign off Please call directly with any questions Please note the above document was generated using voice recognition software. It may contain grammatical, syntax or spelling errors.Any formal questions or concerns about the content, text or information contained within the body of this dictation should be directly addressed to the provider for clarification. Admission and Anticipated Discharge Date Admission Date: April 28, 2024 Subjective Patient seen and examined at bedside. No acute distress, no adverse events overnight He was saturating 89-90% on 1 L nasal cannula at rest I advised him to take deep breaths while listening to his lungs, his saturation went up to 97-98% on the same 1 L. Overall he says he is feeling much better. Denies any cough, no pleuritic chest pain. Shortness of breath is improved. No hemoptysis. Fair appetite No headache, no blurry vision Review of Systems 2 Review of Systems: All systems reviewed & are unremarkable except as noted in Subjective Physical Exam 2 Physical Exam: Constitutional: No acute distress HEENT: EOMI, PERRLA Respiratory system: Decreased air entry bilaterally, no wheeze, no rhonchi, positive crackles bilateral lower lobes CVS: S1-S2 positive, no murmurs or gallops, distant heart sounds Abdomen: Soft, nontender, nondistended, positive bowel sounds x4, obese Extremities: +2 pulses bilaterally radialis/ dorsalis pedis, no cyanosis, +2 pitting edema right lower extremity, +1 pitting edema left lower extremity Neuro: Awake alert oriented x3 Psych: Normal mood and affect G/U:, No [place] Skin: no rashes, warm and dry Lymphatic: no cervical or axillary lymphadenopathy Results & Data Results & Data Vital Signs (Past 12 Hours) Vital Signs Temp Pulse Pulse Resp BP BP Pulse Ox 05/03/24 07:35 36.7 C 66 18 147/83 H 95 05/03/24 07:11 69 18 95 05/03/24 03:17 36.8 C 64 18 143/90 H 96 05/02/24 22:37 37.0 C 68 18 131/84 96 05/02/24 21:49 69 05/02/24 19:59 68 18 98 O2 Del Method O2 Flow Rate 05/03/24 07:35 Room Air 05/03/24 07:11 Nasal Cannula 2 05/03/24 03:17 Nasal Cannula 2.0 05/02/24 22:37 Nasal Cannula 2.5 05/02/24 21:49 05/02/24 19:59 Nasal Cannula 8 Laboratory Results 05/03/24 05:26 05/03/24 05:26 PG Care Time/CCT Total # of Minutes Spent Total Time Spent with Patient: Total time spent is greater than 50% in coordination of care (as documented) at patient's floor/unit and/or counseling patient: Coding Level of Care Code 58360 SUB INP/OBS CARE 235MIN Diagnoses Acute hypoxic respiratory failure J96.01 Pulmonary embolism I26.94 Pulmonary embolism type: multiple subsegmental (without acute cor pulmonale) Acute DVT (deep venous thrombosis) I82.409 Morbid obesity E66.01
--- NOTE | 2024-05-03 17:54 | Discharge Summary ---
Discharge Summary Date of Service May 03, 2024 Principal Dx & Hospital Course #1 = Principal Diagnosis (1) Acute hypoxic respiratory failure: (2) Acute DVT (deep venous thrombosis): (3) Pulmonary embolism: (4) Hypokalemia: (5) Morbid obesity: Plan 44-year-old man admitted with acute hypoxic respiratory failure secondary to acute pulmonary embolism. Found to have bilateral PE and right lower extremity DVT on admission imaging. Started on heparin drip which was changed to apixaban. 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 Other than that no clear risk factors. protein C&S activity, Antithrombin III activity, Prothrombin gene and factor V Leiden assays are pending, homocysteine was normal. newspaper illustrator Dr. Thomas consulted. Recommended minimum 3 months of full anticoagulation then potentially lifelong prophylaxis dose, hematology referral as outpatient. I personally counseled Mr. Barnhart and his on risks and benefits of anticoagula tion including warning signs of gastrointestinal bleeding and need to avoid NSAIDs. He also had some evidence of bronchospasm and wheezing, history of smoking thought to potentially be a COPD exacerbation. This was treated with DuoNebs, prednisone, oral doxycycline and he had significant improvement with no dyspnea or wheezing on day of discharge. He will complete a few more days of prednisone and doxycycline, ordered albuterol inhaler as needed. He will follow-up in primary care Hypoxia significantly improved with the above treatments he was satting low to mid 90s on room air by the time of discharge. He has significant risk of sleep apnea and morbid obesity with BMI of 38, referral for sleep testing is recommended Counseled smoking cessation, he has gone 2 weeks without smoking does not feel that he needs nicotine patch currently, discussed nicotine replacement with gum or lozenges if situational cravings return once he is home. he was hypokalemic on admission requiring potassium replacements, he will continue chlorthalidone for hypertension and added oral potassium supplement to this Notes For Next Care Provider Continue apixaban, hypercoagulable workup labs still pending as detailed above recommend referral for MELI testing, hematology referral recheck potassium, oral replacement started Medication Changes From Visit apixaban was started, NSAIDs stopped Admission HPI Per Admitting Provider Brando is a 44 M w/o significant PMH who presented to the ED for acute onset dyspnea. 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 get to his job here in [employer] - He notes that last night he had twisted and felt a large pop in his mid-back, and has been experiencing a growing amount of discomfort there since - Patient has no history of VTE, no known family history of VTE or clotting disorders (states he doesn't know his family history well) - Patient does have hx of HTN but doesnt recall what his medicine is, believes it has HCTZ in it - Patient endorses ongoing back pain but denies chest pain, headaches, lightheadedness, or abdominal pain - He endorses mild nausea Discharge Exam PHYSICAL EXAMINATION Last 24h vital signs reviewed, see documentation in flowsheet General: comfortable appearing, no distress HEENT: Normocephalic, atraumatic, pupils round and equal, sclerae anicteric, no conjunctival injection, moist mucus membranes Lungs: Normal respiratory effort. Clear to auscultation bilaterally. No RRW Heart: Regular rate and rhythm, no murmurs. No JVD Abdomen: Soft, nontender, nondistended. Bowel sounds present. Extremities: Warm, dry, well-perfused. No extremity edema. Neuro: Alert and oriented x 4, face symmetric, moves 4 extremities well Psych: Normal affect and behavior Updated Medication List Medication Instructions Recorded Confirmed Type atenolol 100 mg-chlorthalidone 25 1 tab PO DAILY 04/28/24 04/28/24 History mg tablet apixaban 5 mg tablet (Eliquis) See Rx Instructions .Route 05/03/24 Rx .COMPLEX #64 tabs doxycycline hyclate 100 mg capsule 100 mg PO BID #4 caps 05/03/24 Rx guaifenesin 600 mg tablet, 600 mg PO BID PRN congestion #0 05/03/24 Rx extended release 12 hr (Mucinex) tabs levalbuterol tartrate 45 2 inh inhalation Q6H PRN shortness 05/03/24 Rx mcg/actuation aerosol inhaler of breath or wheezing #15 grams potassium chloride 10 mEq 10 meq PO DAILY #30 tabs 05/03/24 Rx tablet,extended release prednisone 20 mg tablet 40 mg (2 x 20 mg) PO DAILY #6 tabs 05/03/24 Rx Hospital Stay Data Consultations 04/28/24 22:51 ED Decision to Admit Stat 05/01/24 08:17 Consult Pulmonology Routine Diagnostic Imagining Performed 04/28/24 21:39 CT angio chest PE protocol Stat 04/28/24 22:49 US venous doppler LE BI Stat Chest X-Ray 04/28/24 21:38 XR chest 1V portable CLINICAL HISTORY: Chest pain, nonspecific COMPARISON STUDY: No previous studies for comparison. FINDINGS: There are low lung volumes. Bibasilar densities favor atelectasis. There is no consolidation to suggest pneumonia. Cardiac size is at upper limits of normal. There is no evidence for pulmonary edema. IMPRESSION: No acute cardiopulmonary findings. ACT 112: Negative or not required by law. Electronically signed by: Reji Kothari M.D. 04/29/2024 9:42 AM Chest CTA 04/28/24 21:39 Exam(s): CTA CHEST IV Amt: 116 ml optiray 320 EXAM: CT Angiography Chest With Intravenous Contrast CLINICAL HISTORY: Chest Pain, eval for PE. TECHNIQUE: Axial computed tomographic angiography images of the chest with intravenous contrast. CTDI is 28.14 mGy and DLP is 761.63 mGy-cm. Automated exposure control was utilized for the study. A dose lowering technique was utilized adhering to the principles of ALARA. MIP reconstructed images were created and reviewed. COMPARISON: No relevant prior studies available. FINDINGS: Limitations: There is extensive respiratory artifact which degrades image quality throughout the lungs. Pulmonary arteries: Evaluation of pulmonary artery tree is limited by respiratory artifact and heterogeneous enhancement. However, there is a partial vertical linear filling defect noted in the proximal subsegmental branches serving the left lower lobe. Additional subsegmental defect noted involving the posterior aspect of the segmental and subsegmental branches serving the proximal right upper lobe. Also, there is also a subtle linear partial filling defect involving the subsegmental branches serving the right lower lobe (series 4; image 85). Evaluation for additional potential distal subsegmental filling defects is limited by nondiagnostic quality of the majority of the distal subsegmental pulmonary artery branches. Aorta: No acute findings. No thoracic aortic aneurysm. Lungs: Evaluation of the lungs is somewhat limited. There is diminished expiratory lung volumes with curvilinear changes at the lung bases. No obvious focal airspace consolidation. Pleural space: Unremarkable. No significant effusion. No pneumothorax. Heart: The cardiac chambers are within normal limits. No definite CT evidence for right heart strain. No pericardial effusion. Bones/joints: No acute fracture. No dislocation. Soft tissues: Unremarkable. Lymph nodes: Unremarkable. No enlarged lymph nodes. IMPRESSION: 1. Evaluation of pulmonary artery tree is limited by respiratory artifact and heterogeneous enhancement. However, there are partial, predominantly linear filling defects involving the proximal segmental and subsegmental branches serving the bilateral lower lobes and proximal right upper lobe, consistent with bilateral pulmonary emboli. The linear changes are not definitive for an acute process. This appearance may also be seen with chronic incomplete recanalization or subacute changes. Evaluation for additional potential distal subsegmental filling defects is limited by nondiagnostic quality of the majority of the distal subsegmental pulmonary artery branches. No CT evidence for right heart strain. 2. Evaluation of the lungs is somewhat limited. There is diminished expiratory lung volumes with curvilinear changes at the lung bases. No obvious focal airspace consolidation. No pleural effusion or pneumothorax. Electronically signed by: Andrew Prado MD 04/28/24 22:45 PM Venous Doppler Study 04/28/24 22:49 US venous doppler Brando Willett CLINICAL HISTORY: PEs TECHNIQUE: Bilateral lower extremity real-time compression venous ultrasound with Color Doppler imaging. Utilizing real-time ultrasonic imaging multiple real time high-resolution ultrasonic images with compression and noncompression maneuvers of the deep venous system in addition to color doppler imaging were performed from the common femoral vein through the proximal calf veins. COMPARISON: None available at the time of this dictation. FINDINGS/IMPRESSION: The venous thrombus is seen extending from the common femoral vein to the posterior tibial and peroneal veins. No left lower extremity DVT is seen. No superficial venous thrombosis is identified. ACT 112: Negative or not required by law. Electronically signed by: Andry Hurst M.D. 04/29/2024 10:50 AM Chest X-Ray 04/30/24 00:44 XR chest 1V portable CLINICAL HISTORY: worsening oxygen requirement TECHNIQUE: Single frontal radiograph of the chest was obtained. Comparison: Comparison is made to chest radiograph 04/28/2024 FINDINGS: No lines and tubes are seen. Cardiomegaly is noted. Lungs are underinflated with faint bibasilar airspace opacities.. No evidence of pleural effusion or pneumothorax. IMPRESSION: Underinflated lungs with likely atelectasis in the bilateral lower lungs. ACT 112: Negative or not required by law. Electronically signed by: Andry Hurst M.D. 04/30/2024 9:02 AM Chest X-Ray 05/01/24 08:20 XR chest 1V portable HISTORY: dyspnea COMPARISON: Chest 04/30/2024. FINDINGS: No pneumothorax. No pleural effusions. There is mild elevation of the right hemidiaphragm and low lung volumes. This is similar to the prior study. The cardiac silhouette remains mildly enlarged. Bibasilar linear densities persist. No acute fractures. There is mild central pulmonary vascular congestion without overt edema. IMPRESSION: No significant change in the low lung volumes and bibasilar linear densities. This favors subsegmental atelectasis. ACT 112: Negative or not required by law. Electronically signed by: Alfonso Ring M.D. 05/01/2024 8:35 AM 05/03/24 Range/Units 05:26 WBC 15.18 H (4.8-10.8) K/ul RBC 4.78 (4.70-6.10) M/uL Hgb 13.4 L (14.0-18.0) g/dl Hct 40.1 L (42.0-52.0) % MCV 83.9 (80.0-100.0) fL MCH 28.0 (25.0-34.0) pg MCHC 33.4 (32.0-36.0) g/dL RDW Std Deviation 41.5 (36.4-46.3) fL RDW Coeff of Lance 13.6 (11.5-14.5) % Plt Count 235 (130-400) K/uL MPV 9.6 (9.4-12.4) fL Sodium 139 (136-145) mmol/L Potassium 3.4 L (3.5-5.1) mmol/L Chloride 104 (98-107) mmol/L Carbon Dioxide 29 (21-32) mmol/L Anion Gap 6 (3-11) BUN 21 (6-23) mg/dl Creatinine 0.77 (0.6-1.4) mg/dl Est Cr Clr Drug Dosing 167.4 ml/min Est GFR ( Amer) 127.0 ml/min Est GFR (Non-Af Amer) 109.6 ml/min BUN/Creatinine Ratio 27.3 H (10-20) Glucose 110 H (70-99(Fasting)) mg/dl Calcium 8.0 L (8.6-10.3) mg/dl Pending Results Patient Have Any Pending Studies at Discharge: No Discharge Instructions Given to Patient (Per Discharging Provider) You were treated for pulmonary embolism (blood clot in leg) and DVT (blood clot in leg) -this is treated with blood thinners - take eliquis (apixaban) as directed -minimum of 3 months full-strength blood thinners, newspaper illustrator recommended terminal operator lower dose blood thinner after that to prevent recurrence Blood thinners carry the risk of bleeding - seek medical attention if you develop signs of abnormal bleeding, for example black/tarry or bloody stool Seek immediate medical attention if you develop altered mental status or signs of stroke Avoid taking NSAIDS (ibuprofen or naproxen) while on blood thinner - these increase the risk of stomach ulcers and gastrointestinal bleeding Acetaminophen is safe to take as directed We treated you for possible COPD or asthma exacerbation with prednisone, doxycycline and inhaler. I am not sure whether you have this. I strongly recommend quitting smoking if you have not already done so. Sleep medicine for sleep apnea testing is recommended. Home Health Attestation I certify that this patient is under my care and that I, or a physicians interior design assistant working with me, had a face to-face encounter that meets the home health [id number] encounter requirements with this patient. The encounter with the patient was in whole, or in part, for the following medical condition, which is the primary reason for home health care (list medical condition): I certify that, based on my findings, the following services are medically necessary home health services: My clinical findings support the need for the above services because: Further, I certify that my clinical findings support that this patient is homebound (i.e. absences from home require considerable and taxing effort and are for medical reasons or adventism services or infrequently or of short duration when for other reasons) because: Certification for Home Health Services: Based on the above findings, I certify that this patient is confined to the home and needs intermittent penitentiary care, physical therapy and/or speech therapy or continues to need occupational therapy. The patient is under my care, and I have initiated the establishment of the plan of care. This patient will be followed by a physician who will periodically review the plan of care. Total Time Total Time Spent Total Time Spent (In Minutes): I personally spent: 40 minutes today on clinical care activities including: reviewing chart notes and vital signs reviewing labs reviewing studies reviewing national sales consultant recommendations examining and counseling the patient counseling the patient's family writing orders, discharge instructions, prescriptions documentation Coding Level of Care Code 48354 INP/OBS DISCH >30 MIN Diagnoses Acute hypoxic respiratory failure J96.01 Acute DVT (deep venous thrombosis) I82.409 Pulmonary embolism I26.94 Pulmonary embolism type: multiple subsegmental (without acute cor pulmonale) Hypokalemia E87.6 Morbid obesity E66.01
[2024-05-04 23:32] LABS: Anti-Thrombin III Activity 98 % normal (80-135); Protein S Functional(Activity) 73 % normal (70-150)
== END 2024-05-03 11:56 | disposition home or self-care (01) | DRG 175 ==
LOC: ED 21:18 → 2S 23:43 → SUATTDRO 23:43 → 2S 04-29 01:09